=== PATIENT | female | born 2000 | race American Indian/Alaskan Native ===

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

== ENCOUNTER 2018-10-19 03:04 | Inpatient (IN) | payer MEDICAID ==
[2018-10-19] MEDS ORDERED: Carboprost Tromethamine 250 MCG/1 ML Amp IM PRN ×2 (03:48→12:45)
[2018-10-19] MEDS ORDERED: Ondansetron 4 MG/2 ML SDV IV PRN (03:48)
[2018-10-19] MEDS ORDERED: Sodium Chloride 0.9% 10 ML Syringe FLUSH PRN ×2 (03:48→12:45)
[2018-10-19] MEDS ORDERED: Tranexamic Acid 1,000 MG in Sodium Chloride 0.9% 100 ML IV PRN ×2 (03:48→12:45)
[2018-10-19] MEDS ORDERED: Misoprostol 400 MCG (4 X 100 MCG TAB) RECTAL PRN ×2 (03:48→12:45)
[2018-10-19] MEDS ORDERED: Lidocaine 1% 30 ML SDV INJECT PRN (03:48)
[2018-10-19] MEDS ORDERED: Lactated Ringers 500 ML IV ONE (03:48)
[2018-10-19] MEDS ORDERED: Methylergonovine 0.2 MG/1 ML Amp IM PRN (03:48)
[2018-10-19] MEDS: Lactated Ringers 1,000 ML IV SCH ×2 (04:07→08:15)
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
[2018-10-19] MEDS ORDERED: Nalbuphine 10 MG/1 ML Vial IM ONE (07:51)
[2018-10-19] MEDS: Oxytocin/Normal Saline 30 UNIT/500 ML BAG IV SCH ×2 (09:54→10:47)
--- NOTE | 2018-10-19 10:53 | PCM.DEL ---
L & D Note - General Info Date of Service: 10/19/18 Mother's Due Date: 10/15/18 - Delivery Note Labor: Spontaneous, Augmented by ARM Delivery Outcome: Livebirth Delivery Method: Spontaneous Vaginal Delivery-Single Presentation: Vertex Nuchal Cord: None Prep: Povidone-Iodine (Betadine Anesthesia Type: Local Anesthetic: Lidocaine (Xylocaine) 1% Plain Local Anesthetic Volume: Other (10 cc) Amniotic Fluid Description: Clear Laceration: 3rd Degree (Partial), Perineal Suture size: 3-0 (x2) Placenta: Intact, Spontaneous Cord: 3 Vessels Estimated Blood Loss: 300 Resuscitation Needed: No : Bulb Syringe Provider: Latisha Castro Score 1 min: 9 Score 5 min: 9 Delivery Comments (Free Text/Narrative):: 18-year-old presented to L&D with contractions on 10/18/18 in the morning. Around 0100 today, contractions increased in frequency to every 3 minutes with no loss of fluid. When patient arrived to L&D around 330, she was noted to be 5 cm dilated. Patient progressed to complete dilation around 0900 and was AROM' d for a small amount of clear fluid. Patient then pushed for 33 minutes. She delivered a viable male weighing 7 pounds, 15 ounces with Apgars of 9 and 9 at 1 and 5 minutes respectively. Baby was placed on the mother's chest. Cord was clamped x2 and cut. Cord blood was collected. The placenta delivered 15 minutes later spontaneously and was noted to be intact. Bleeding was initially brisk so pitocin rate was increased to 999 mL/hr and bimanual massage was performed. The lower uterine segment was swept and a few small clots were removed. Uterine tone improved and bleeding decreased to an appropriate amount of bleeding was noted. A partial 3rd degree perineal laceration was noted. The muscle layer was repaired first with 3-0 Vicryl. The remaining "2nd degree " laceration was repaired in standard fashion. A rectal examination was performed and was noted to be normal. Bleeding was again assessed and was noted to be appropriate. The patient tolerated the procedure well, and there were no immediate complications. - General Info Date of Service: 10/19/18 - Patient Data Vitals - Most Recent: Last Vital Signs Temp 37.4 C 10/19/18 08:03 Pulse 65 10/19/18 06:58 Resp 14 10/19/18 06:58 BP 127/72 10/19/18 06:58 Pulse Ox Weight - Most Recent: 87.543 kg I&O - Last 24 Hours: Intake & Output 10/18/18 10/19/18 10/19/18 22:59 06:59 14:59 Intake Total 900 1000 Balance 900 1000 Lab Results Last 24 Hours: Laboratory Results - last 24 hr 10/19/18 10/19/18 Range/Units 03:30 04:05 WBC 10.6 H (5.0-10.0) 10^3/uL RBC 4.34 (4.2-5.4) 10^6/uL Hgb 12.7 (12.0-16.0) g/dL Hct 37.7 (37.0-47.0) % MCV 86.9 (80-100) fL MCH 29.3 (27.0-34.0) pg MCHC 33.7 (33.0-35.0) g/dL Plt Count 304 (150-450) 10^3/uL Urine Opiates Screen Negative (NEGATIVE) Ur Oxycodone Screen Negative (NEGATIVE) Urine Methadone Screen Negative (NEGATIVE) Ur Barbiturates Screen Negative (NEGATIVE) U Tricyclic Antidepress Negative (NEGATIVE) Ur Phencyclidine Scrn Negative (NEGATIVE) Ur Amphetamine Screen Negative (NEGATIVE) U Methamphetamines Scrn Negative (NEGATIVE) Urine MDMA Screen Negative (NEGATIVE) U Benzodiazepines Scrn Negative (NEGATIVE) Urine Cocaine Screen Negative (NEGATIVE) U Marijuana (THC) Screen Negative (NEGATIVE) Med Orders - Current: Current Medications Acetaminophen (Tylenol) 650 mg PO Q4H PRN PRN Reason: Pain (Mild 1-3) and fever Carboprost Tromethamine (Hemabate Ds) 250 mcg IM ASDIRECTED PRN PRN Reason: HEMORRHAGE Lactated Ringer's (Ringers, Lactated) 1,000 mls @ 125 mls/hr IV ASDIRECTED DAYAMI Last Admin: 10/19/18 08:15 Dose: 125 mls/hr Oxytocin/Sodium Chloride (Pitocin In Ns 30 Unit/500 Ml) 30 unit in 500 mls @ 2 mls/hr IV TITRATE DAYAMI; Protocol Last Titration: 10/19/18 10:16 Dose: 500 mls/hr Tranexamic Acid 1,000 mg/ (Sodium Chloride) 110 mls @ 660 mls/hr IV ONETIME PRN PRN Reason: Bleeding Lidocaine HCl (Xylocaine-Mpf 1%) 30 ml INJECT ASDIRECTED PRN PRN Reason: Perineal Repair Last Admin: 10/19/18 09:51 Dose: 10 ml Methylergonovine Maleate (Methergine) 0.2 mg IM ASDIRECTED PRN PRN Reason: Hemorrhage Misoprostol (Cytotec) 800 mcg RECTAL ASDIRECTED PRN PRN Reason: Hemorrhage Ondansetron HCl (Zofran) 4 mg IV Q4H PRN PRN Reason: Nausea/Vomiting Sodium Chloride (Saline Flush) 10 ml FLUSH ASDIRECTED PRN PRN Reason: Keep Vein Open Last Admin: 10/19/18 08:18 Dose: 10 ml Discontinued Medications Lactated Ringer's (Ringers, Lactated) 500 mls @ 999 mls/hr IV .BOLUS ONE Stop: 10/19/18 04:18 Nalbuphine HCl (Nubain) 20 mg IM ONETIME ONE Stop: 10/19/18 07:52 Last Admin: 10/19/18 08:14 Dose: 20 mg - Problem List & Annotations (1) care in third trimester SNOMED Code(s): 757221919, 35651296, 01398702, 920956677, 948178659 Code(s): Z34.93 - ENCNTR FOR SUPRVSN OF NORMAL PREG, UNSP, THIRD TRIMESTER Status: Acute Current Visit: Yes (2) (normal spontaneous vaginal delivery) SNOMED Code(s): 47579834 Code(s): O80 - ENCOUNTER FOR FULL-TERM UNCOMPLICATED DELIVERY Status: Acute Current Visit: Yes (3) Drug use affecting SNOMED Code(s): 28210344, 045161972 Code(s): O99.320 - DRUG USE COMPLICATING , UNSPECIFIED TRIMESTER Status: Acute Current Visit: Yes (4) STD (sexually transmitted disease) complicating , antepartum SNOMED Code(s): 63893236 Code(s): O98.319 - OTH INFECT W SEXL MODE OF TRANSMISS COMP PREG, UNSP TRI; A64 - UNSPECIFIED SEXUALLY TRANSMITTED DISEASE Status: Acute Current Visit: Yes (5) Perineal laceration during delivery, delivered SNOMED Code(s): 555222670 Code(s): O70.9 - PERINEAL LACERATION DURING DELIVERY, UNSPECIFIED Status: Acute Current Visit: Yes - Problem List Review Problem List Initiated/Reviewed/Updated: Yes - My Orders Last 24 Hours: My Active Orders 10/19/18 03:48 Communication Order [RC] ASDIRECTED May Shower [RC] ASDIRECTED Notify Provider [RC] PRN Up ad Beata [RC] ASDIRECTED Acetaminophen [Tylenol] 650 mg PO Q4H PRN Carboprost Tromethamine [Hemabate DS] 250 mcg IM ASDIRECTED PRN Lidocaine 1% [Xylocaine-MPF 1%] 30 ml INJECT ASDIRECTED PRN Methylergonovine [Methergine] 0.2 mg IM ASDIRECTED PRN Ondansetron [Zofran] 4 mg IV Q4H PRN Sodium Chloride 0.9% [Saline Flush] 10 ml FLUSH ASDIRECTED PRN Tranexamic Acid [Cyklokapron] 1,000 mg Sodium Chloride 0.9% [Normal Saline] 100 ml IV ONETIME miSOPROStol [Cytotec] 800 mcg RECTAL ASDIRECTED PRN Saline Lock Insert [OM.PC] Routine 10/19/18 03:51 Pump Management, Intrathecal [RC] ASDIRECTED 10/19/18 04:00 Lactated Ringers [Ringers, Lactated] 1,000 ml IV ASDIRECTED Oxytocin/Normal Saline [Pitocin in NS 30 UNIT/500 ML] 30 unit in 500 ml IV TITRATE - Assessment Assessment:: 18-year-old, now , status post at 40w4d gestation --Partial 3rd degree laceration, repaired - Plan Plan:: 1. Initiate routine orders 2. Stool softeners BID 3. Mother plans to bottlefeed 4. Anticipate discharge 10/21/18 Latisha Castro MD
[2018-10-19] MEDS ORDERED: Acetaminophen 325 MG Tab PO PRN (12:45)
[2018-10-19] MEDS ORDERED: Benzocaine/Menthol 20%-0.5% Spray 56 GM Canister TOP PRN (12:45)
[2018-10-19] MEDS ORDERED: Simethicone 80 MG Tab.Chew PO PRN (12:45)
[2018-10-19] MEDS ORDERED: Zolpidem 5 MG Tab PO PRN (12:45)
[2018-10-19] MEDS ORDERED: Oxytocin 10 Units/1 ML SDV IM PRN (12:45)
[2018-10-19] MEDS: Ibuprofen 800 MG Tab PO PRN ×2 (13:08→20:40)
[2018-10-19] MEDS: Docusate Sodium 100 MG Cap PO PRN ×2 (13:08→20:40)
[2018-10-20] MEDS: Docusate Sodium 100 MG Cap PO PRN ×2 (09:07→21:07)
[2018-10-20] MEDS: Ibuprofen 800 MG Tab PO PRN ×2 (09:08→17:11)
[2018-10-20] MEDS: Prenatal Multivitamin with Calcium/Folic Acid/Iron Tab PO SCH (09:08)
[2018-10-20] MEDS: Acetaminophen 325 MG Tab PO PRN ×2 (09:09→14:30)
--- NOTE | 2018-10-20 10:08 | PN ---
DATE: 10/20/2018 SUBJECTIVE: The patient is a 18-year-old 1, now para 1 female, who is day #1 from a spontaneous vaginal delivery at 40 weeks and 4 days' gestation. The patient reports generally doing well overnight. She states that she is still very sore and stiff overnight. She endorses tolerating general diet, ambulating, voiding, passing flatus. She denies bowel movement at this point. The patient had a partial third-degree perineal laceration during delivery that she states is still very tender and sore. This is expected. Overall, she is doing very well. The patient is and states that her nipples are quite sore, but is going well. She denies symptoms of fever, chills, headache, dizziness, chest pain, shortness of breath, abdominal pain, or swelling in lower extremities bilaterally. OBJECTIVE: Vital Signs: Temperature 99.2, HR 76 b.p.m., BP 114/60. General: Awake, alert, in no acute distress, resting peacefully. HEENT: Grossly normal. Pulmonary: Lungs clear to auscultation bilaterally. Cardiovascular: Heart is regular rate and rhythm. No murmurs noted. Abdomen: Soft, nondistended. Normoactive bowel sounds. Uterine fundus is firm and tender to touch, palpated 5 cm below the umbilicus. Extremities: No edema in the lower extremities bilaterally. No tenderness to calf palpation bilaterally. Skin: No rashes or bruises noted. Neurologic: Grossly normal. RECENT LABORATORY RESULTS: Hematology: WBC 12.0, up from 10.6 on admission; RBC 3.61; HGB 10.6, down from 12.7 on admission; HCT 32.4, down from 37.7 on admission; platelet count 260, down from 304 on admission. ASSESSMENT: The patient is a 18-year-old, 1, now para 1 female, who is day #1 from spontaneous vaginal delivery at 40 weeks and 4 days' gestation with delivery of a late term male. The patient is . The patient is doing well. PLAN: 1. Continue cares. 2. , taxation consultant was consulted. 3. Partial third-degree perineal laceration. Continue routine cares--stool softener BID The patient was seen and evaluated today by myself and Dr. Latisha Castro. Assessment and plan are under advisement of Dr. Castro. [facility] /[id number] Patient was personally seen and examined with the medical student. I reviewed the noted scribed on my behalf and necessary changes have been made to reflect my opinion on the history, exam, assessment, and plan. Latisha Castro MD [facility]
[2018-10-21] MEDS: Ibuprofen 800 MG Tab PO PRN ×2 (00:57→08:40)
[2018-10-21] MEDS: Docusate Sodium 100 MG Cap PO PRN (08:40)
[2018-10-21] MEDS: Prenatal Multivitamin with Calcium/Folic Acid/Iron Tab PO SCH (08:40)
[2018-10-21 08:44] VITALS: BP 113/76
--- NOTE | 2018-10-21 17:16 | DISCH ---
ADMITTING DIAGNOSES: 1. 1, para 0. 2. History of anemia in . 3. History of sexually transmitted disease in . 4. History of THC in early . UDS on admission is negative. 5. Intrauterine at 40 weeks and 4 days' gestation. DISCHARGE DIAGNOSES: 1. 1, now para 1. 2. Spontaneous vaginal delivery at 40 weeks and 4 days' gestation. 3. Partial third-degree perineal laceration, repaired. 4. History of anemia in . 5. History of sexually transmitted disease in . 6. History of THC in , UDS on admission is negative. BRIEF HISTORY: The patient is a 18-year-old, now 1, para 1, with the above diagnoses, who presented to Labor and Delivery due to increasing frequency and intensity of contractions, presenting in labor. Labor progressed expectantly. The patient received Nubain for pain control and tolerated this well. Artificial rupture of membranes occurred at 0850 on 10/19/2018. Stage II of labor was approximately 30 minutes and the patient delivered a term male with scores of 9 and 9 at 1 and 5 minutes respectively. Estimated blood loss was 300 mL. A partial third-degree perineal laceration was noted and subsequently repaired. The patient participated in immediate bonding and skin to skin with after delivery. The patient tolerated the procedure well and there were no immediate complications. Please see delivery note for further details. HOSPITAL COURSE: Good. The patient reports minimal cramping and bleeding. She reports feeling sore and sensitive as this is to be expected. She is ambulating well, tolerating general diet, urinating well, and passing flatus. The patient is successfully. She reports feeling sore and tender, but that it is going well. [place] has spent most of hospital stay roomed in with mother to initiate bonding and . The patient expresses eagerness to be discharged on day #2. DISCHARGE CONDITION: Good. DISCHARGE PHYSICAL EXAMINATION: Vital Signs: Temp 98.5, HR 81 bpm, BP 127/71, RR 14 breaths per minute, O2 sat 100% on room air. General: Awake, alert, cooperative, in no acute distress. HEENT: Grossly normal. Pulmonary: Lungs are clear to auscultation bilaterally. No increased work of breathing. Cardiovascular: Regular rate and rhythm. No murmurs noted. Abdomen: Soft, nondistended, nontender. Normoactive bowel sounds. Firm uterus palpated 5 cm below the umbilicus. Extremities: No edema or erythema noted in the upper and lower extremities bilaterally. No tenderness to palpation of calves bilaterally. Neurologic: Grossly normal. RECENT LABORATORY RESULTS: Hematology: WBC 12.0, RBC 3.61, hemoglobin 10.6, hematocrit 32.4, platelet count 260. DISCHARGE MEDICATIONS: 1. Dual breast pump prescription given. DISPOSITION: Home with family. FOLLOWUP: The patient was advised to follow up with infant for cardiac echo of on 2:30 p.m. in [facility]. Follow-up appointment with Dr. Corrina Jay in clinic is also scheduled for 10/24/18. Questions were addressed and patient is in agreement with this plan. The patient was seen and evaluated today by myself and Dr. Corrina Jay. Discharge evaluation is under advisement of Dr. Corrina Jay. -Negin Gomez MS-III [facility] /[id number] MTDLory
== END 2018-10-21 11:45 | disposition home or self-care (01) | DRG 768 ==
LOC: DL.OBCHECK 03:04 → DL.OB 03:49 → OBSVTOIN 09:42
PROVIDERS: ADMIT Family Medicine; ATTEND Family Medicine
PROC: 10E0XZZ Delivery of Products of Conception, External Approach (ICD-10-PCS; principal; 2018-10-19)
PROC: 0DQR0ZZ Repair Anal Sphincter, Open Approach (ICD-10-PCS; 2018-10-19)
PROC: 4A1HXCZ Monitoring of Products of Conception, Cardiac Rate, External Approach (ICD-10-PCS; 2018-10-19)
PROC: 10907ZC Drainage of Amniotic Fluid, Therapeutic from Products of Conception, Via Natural or Artificial Opening (ICD-10-PCS; 2018-10-19)
DX: O48.0 Post-term pregnancy (principal); Z37.0 Single live birth; O70.20 Third degree perineal laceration during delivery, unspecified; O99.324 Drug use complicating childbirth; O99.02 Anemia complicating childbirth; O99.334 Smoking (tobacco) complicating childbirth; F17.200 Nicotine dependence, unspecified, uncomplicated; D64.9 Anemia, unspecified; O98.319 Other infections with a predominantly sexual mode of transmission complicating pregnancy, unspecified trimester; A64 Unspecified sexually transmitted disease; Z3A.40 40 weeks gestation of pregnancy; F12.90 Cannabis use, unspecified, uncomplicated
CPT/HCPCS: 36415; 51701; 59409; 80305-QW; 85027; A9270-GY; J2001; J2300; J2590; J7120

== ENCOUNTER 2019-07-20 12:11 | Emergency (ER) | payer MEDICAID ==
[2019-07-20 13:39] VITALS: BP 110/65; PULSE 65
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
== END 2019-07-20 14:24 | disposition home or self-care (01) ==
LOC: DL.ED 12:11
DX: S61.213A Laceration without foreign body of left middle finger without damage to nail, initial encounter (principal); F17.210 Nicotine dependence, cigarettes, uncomplicated; W26.0XXA Contact with knife, initial encounter
CPT/HCPCS: 12001; 99282-25

== ENCOUNTER 2020-09-07 21:52 | Emergency (ER) | payer OTHER, MEDICAID ==
[2020-09-07 22:34] VITALS: BP 118/58; PULSE 78
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
[2020-09-07] MEDS ORDERED: Bacitracin Oint 1 GM U/D Packet TOP ONE (22:43)
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
== END 2020-09-07 23:08 | disposition home or self-care (01) ==
LOC: DL.ED 21:52
DX: S61.234A Puncture wound without foreign body of right ring finger without damage to nail, initial encounter (principal); S60.041A Contusion of right ring finger without damage to nail, initial encounter; W23.0XXA Caught, crushed, jammed, or pinched between moving objects, initial encounter
CPT/HCPCS: 73130-RT; 99283